=== PATIENT | male | born 1985 | race Caucasian/White ===

== ENCOUNTER 2016-09-20 09:43 | Emergency (ER) | payer SELFPAY ==
--- NOTE | 2016-09-21 10:00 | ER ---
ADMIT: 09/20/2016 RM/LOC: ER [facility] MR#: [id number] [address] [id number] [place] [address] Emergency Room Report SEX: M AGE: 31 : 1985 DATE: 09/20/2016 HISTORY OF PRESENT ILLNESS: The patient is a 31-year-old male, who yesterday dropped a hitch on his foot. He is complaining of pain. He comes in today with throbbing pain in the left foot. PAST MEDICAL HISTORY: Includes: 1. Septoplasty. 2. Hernia repair. 3. He has had bipolar disorder with depression. MEDICATIONS: See T-sheet. PHYSICAL EXAMINATION: On examination, he has slight swelling and tender toe area of his left foot. There is blood under the toenail and bruising on the great toe. Medications given. The x-ray is negative for fracture. The patient discharged with postop shoe. DIAGNOSIS: Contusion to left foot. WILFRIDO Burgess / Alonso Nobles MD / jesel JOB #: [id number] CC: Alonso Nobles MD, Attending Physician UNKNOWN, Family Physician
== END 2016-09-20 12:05 | disposition home or self-care (01) ==
LOC: ER 09:43
DX: S92.425A Nondisplaced fracture of distal phalanx of left great toe, initial encounter for closed fracture (principal); F32.9 Major depressive disorder, single episode, unspecified; E11.9 Type 2 diabetes mellitus without complications; W20.8XXA Other cause of strike by thrown, projected or falling object, initial encounter; Y92.009 Unspecified place in unspecified non-institutional (private) residence as the place of occurrence of the external cause